=== PATIENT | female | born 1990 | race Caucasian/White ===

== ENCOUNTER 2018-01-05 09:37 | Day surgery (SDC) | payer OTHER ==
[~2018-01-05 09:37] MED LIST: GELATIN SPONGE SIZE 100.; LIDOCAINE 2%/EPI 1:100,000 20 ML VIAL.; NEOMY/BACITR/POLYMYXIN OINT PACKET. TP; OXYMETAZOLINE 0.05% NASAL SPRAY 30ML BOTTLE. NS
[2018-01-05] MEDS ORDERED: GLYCOPYRROLATE 1 MG/5 ML VIAL. (10:12)
[2018-01-05] MEDS ORDERED: MIDAZOLAM HCL/PF 2 MG/2 ML VIAL. (10:12)
[2018-01-05] MEDS ORDERED: NEOSTIGMINE METHYLSULFATE 5 MG/5 ML SYRINGE. (10:12)
[2018-01-05] MEDS ORDERED: ROCURONIUM 50 MG/5 ML VIAL. (10:12)
[2018-01-05] MEDS ORDERED: fentaNYL PF VIAL 100 MCG/2 ML VIAL (10:12)
[2018-01-05] MEDS ORDERED: SEVOFLURANE 61 TO 120 MINUTES. IH (10:12)
[2018-01-05] MEDS ORDERED: DEXAMETHASONE SOD PHOS 20 MG/5 ML VIAL. (10:13)
[2018-01-05] MEDS ORDERED: PROPOFOL 20 ML IV (10:13)
[2018-01-05] MEDS ORDERED: ONDANSETRON PF 4 MG/2 ML VIAL. (10:13)
[2018-01-05 10:14] LABS: NEG OBC UR NEG; POS OBC UR POS; U PREG PATIENT NEGATIVE (NEG)
[2018-01-05] MEDS: IV RINGERS,LACTATED 1000ML 1,000 ML IV (10:29)
[2018-01-05] MEDS: OXYMETAZOLINE 0.05% NASAL SPRAY 30ML BOTTLE. NS (10:29)
[2018-01-05] MEDS ORDERED: LIDOCAINE 1%/EPI 1:100,000 20 ML VIAL. (10:55)
[2018-01-05] MEDS: LIDOCAINE 1%/EPI 1:100,000 20 ML VIAL. INJ (12:04)
[2018-01-05] MEDS ORDERED: PHENYLEPHRINE in 0.9% NACL PF 1 MG/10 ML SYRINGE. IV (12:16)
[2018-01-05] MEDS ORDERED: PROCHLORPERAZINE 10 MG/2 ML VIAL. (13:08)
[2018-01-05] MEDS ORDERED: IV RINGERS,LACTATED 1000ML 1,000 ML IV (13:18)
[2018-01-05] MEDS ORDERED: LIDOCAINE 1% PF 2 ML VIAL. ID (13:30)
[2018-01-05] MEDS ORDERED: MORPHINE SULFATE 4 MG/ML DISP.SYRIN. IV (13:30)
[2018-01-05] MEDS ORDERED: fentaNYL PF VIAL 100 MCG/2 ML VIAL IV ×2 (13:30)
[2018-01-05] MEDS ORDERED: ONDANSETRON PF 4 MG/2 ML VIAL. IV (13:30)
[2018-01-05] MEDS: PROCHLORPERAZINE 10 MG/2 ML VIAL. IV (13:30)
[2018-01-05] MEDS: HYDROcodone/APAP 5/325MG 1 TAB TABLET PO (13:59)
== END 2018-01-05 14:41 | disposition home or self-care (01) ==
LOC: SURG 09:37
DX: J34.2 Deviated nasal septum (principal); J34.3 Hypertrophy of nasal turbinates; J34.89 Other specified disorders of nose and nasal sinuses; K21.9 Gastro-esophageal reflux disease without esophagitis; Z79.899 Other long term (current) drug therapy; Z83.3 Family history of diabetes mellitus; Z82.3 Family history of stroke; Z80.9 Family history of malignant neoplasm, unspecified; Z72.89 Other problems related to lifestyle; Z98.890 Other specified postprocedural states
CPT/HCPCS: 30130; 81025; J0780; J1100; J2250; J2370; J2405; J2704; J2710; J3010; J3490